=== PATIENT | female | born 1945 | race Caucasian/White ===

== ENCOUNTER 2020-07-30 11:52 | Outpatient (CLI) | payer MEDICARE | END 2020-07-30 23:59 | disposition home or self-care (01) | LOC: CFH 11:52 | PROVIDERS: ATTEND Family Medicine | DX: N60.02 Solitary cyst of left breast (principal); N63.20 Unspecified lump in the left breast, unspecified quadrant | CPT/HCPCS: 76642; 77062; 77066; G0279 ==

== ENCOUNTER → 2020-08-11 | Outpatient (CLI) | payer MEDICARE | END | disposition home or self-care (01) | LOC: CFH 10:31 | PROVIDERS: ATTEND Family Medicine | DX: M85.88 Other specified disorders of bone density and structure, other site (principal) | CPT/HCPCS: 77080 ==

== ENCOUNTER → 2020-09-22 | Outpatient (CLI) | payer MEDICARE ==
[~2020-09-22] MED LIST: ACET-1600 PO; MULT-717 PO; phentermine PO
[2020-09-22 11:48] LABS: BASOPHILS % (AUTO) 1 % (0-1); EOSINOPHILS % (AUTO) 14 % (1-7); LYMPHOCYTES % (AUTO) 29 % (22-44); MEAN CORPUSCULAR HEMOGLOBIN 29.6 pg (27.0-34.8); MEAN CORPUSCULAR HGB CONC 33.5 g/dL (32.4-35.8); MEAN PLATELET VOLUME 7.8 fL (7.4-10.4); MONOCYTES % (AUTO) 6 % (2-9); NEUTROPHILS % (AUTO) 51 % (42-75); PLATELET COUNT 298 x10^3/uL (130-400); RED CELL DISTRIBUTION WIDTH 15.6 % (9.6-15.2)
[2020-09-22 11:54] LABS: CHLORIDE 106 mmol/L (98-107); INTERNATIONAL NORMALIZED RATIO 1.02 (0.93-1.1); PROTHROMBIN TIME 10.9 Seconds (9.6-11.5)
[2020-09-22 11:57] LABS: MD NO
[2020-09-22 12:13] LABS: ALANINE AMINOTRANSFERASE 27 U/L (12-78); ALBUMIN 3.5 g/dL (3.4-5.0); ALKALINE PHOSPHATASE 117 U/L (45-117); ANION GAP 6 mmol/L (5-15); BILIRUBIN,TOTAL 0.3 mg/dL (0.2-1.0); CALCIUM 9.9 mg/dL (8.5-10.1); CREATININE 0.57 mg/dL (0.55-1.02); TOTAL PROTEIN 7.6 g/dL (6.4-8.2)
== END | disposition home or self-care (01) ==
LOC: STAR 10:18
PROVIDERS: ATTEND Orthopaedic Surgery
DX: Z01.810 Encounter for preprocedural cardiovascular examination (principal); Z01.818 Encounter for other preprocedural examination; M16.11 Unilateral primary osteoarthritis, right hip; M25.551 Pain in right hip; Z79.01 Long term (current) use of anticoagulants; Z20.822 Contact with and (suspected) exposure to COVID-19
CPT/HCPCS: 36415; 80053; 83036; 85025; 85610; 85730; 87081; 87806; 93005; U0003; G0475

== ENCOUNTER 2020-09-28 06:01 | Observation (INO) | payer MEDICARE ==
[~2020-09-28] VITALS: Ht 165.1 cm; Wt 109.4 kg
[2020-09-28] MEDS ORDERED: ACETAMINOPHEN 650 MG/20.3 ML UDC PO PRN (07:00)
[2020-09-28] MEDS ORDERED: POLYETHYLENE GLYCOL 17 GM PACKET PO PRN (07:00)
[2020-09-28] MEDS ORDERED: DIPHENHYDRAMINE 50 MG CAPSULE PO PRN (07:00)
[2020-09-28] MEDS ORDERED: TRANEXAMIC ACID 1,000 MG in SODIUM CHLORIDE 0.9% 100 ML IVPB ONE ×2 (07:00→11:00)
[2020-09-28] MEDS ORDERED: PSYLLIUM PACKET PO PRN (07:00)
[2020-09-28] MEDS ORDERED: ALUMINUM/MAG/SIMETHICONE 30 ML UDC PO PRN (07:00)
[2020-09-28] MEDS ORDERED: ONDANSETRON 2MG/ML, 2ML IVPush PRN (07:00)
[2020-09-28] MEDS ORDERED: METOCLOPRAMIDE 5 MG/ML, 2ML IVPush PRN (07:00)
[2020-09-28] MEDS ORDERED: DIPHENHYDRAMINE 50 MG/ML, 1ML IVPush PRN (07:00)
[2020-09-28] MEDS ORDERED: HYDROmorphone 1 MG/ML, 1ML INJ IVPush PRN ×2 (07:00→08:30)
[2020-09-28] MEDS ORDERED: ONDANSETRON 4 MG TABLET PO PRN (07:00)
[2020-09-28] MEDS ORDERED: MAGNESIUM HYDROXIDE 8%, 30ML UDC PO PRN (07:00)
[2020-09-28] MEDS ORDERED: CHLORHEXIDINE 15 ML UDC ONE (07:16)
[2020-09-28] MEDS ORDERED: CHLORHEXIDINE 15 ML UDC PO ONE (07:30)
[2020-09-28] MEDS ORDERED: ACETAMINOPHEN 500 MG TABLET PO ONE (07:30)
[2020-09-28] MEDS ORDERED: LACTATED RINGERS 1,000 ML IV SCH (07:30)
[2020-09-28] MEDS ORDERED: GABAPENTIN 300 MG CAPSULE PO ONE (07:30)
[2020-09-28] MEDS ORDERED: FENTANYL PF 250 MCG/5ML ONE ×2 (08:09→09:07)
[2020-09-28] MEDS ORDERED: KETOROLAC 60 MG/2 ML ONE (08:09)
[2020-09-28] MEDS ORDERED: VANCOMYCIN 1,000 MG ONE (08:10)
[2020-09-28] MEDS ORDERED: EPINEPHRINE 1 MG/ML, 1ML ONE (08:10)
[2020-09-28] MEDS ORDERED: ROPIvacaine/PF 0.2%, 20 ML ONE ×2 (08:10→08:22)
[2020-09-28] MEDS ORDERED: TRANEXAMIC ACID 100 MG/ML, 10ML ONE (08:10)
[2020-09-28] MEDS ORDERED: ACETAMINOPHEN 325 MG TABLET PO PRN (08:30)
[2020-09-28] MEDS ORDERED: OXYcodone 5 MG/5 ML ORAL.SOL UDC PO PRN (08:30)
[2020-09-28] MEDS ORDERED: morphine SULFATE 10 MG/ML, 1ML IVPush PRN (08:30)
[2020-09-28] MEDS ORDERED: hydrALAzine 20 MG/ML, 1ML IV PRN (08:30)
[2020-09-28] MEDS ORDERED: LABETALOL 5MG/ML, 20ML IV PRN (08:30)
[2020-09-28] MEDS ORDERED: PROMETHAZINE 25 MG/ML, 1ML IVPush PRN (08:30)
[2020-09-28] MEDS ORDERED: MEPERIDINE/PF 25MG/0.5ML IVPush PRN (08:30)
[2020-09-28] MEDS ORDERED: HALOPERIDOL 5 MG/ML IV PRN (08:30)
[2020-09-28] MEDS ORDERED: ONDANSETRON 2MG/ML, 2ML ONE (09:07)
[2020-09-28] MEDS ORDERED: DEXAMETHASONE 4 MG/ML, 1ML ONE (09:07)
[2020-09-28] MEDS ORDERED: NEOSTIGMINE 1 MG/ML, 10ML ONE (09:07)
[2020-09-28] MEDS ORDERED: ROCURONIUM 10MG/ML,5ML ONE (09:07)
[2020-09-28] MEDS ORDERED: CEFAZOLIN 1,000 MG ONE (09:07)
[2020-09-28] MEDS ORDERED: PROPOFOL 10 MG/ML, 20ML ONE (09:07)
[2020-09-28] MEDS ORDERED: GLYCOPYRROLATE 0.2MG/1ML, 5ML ONE (09:07)
[2020-09-28] MEDS ORDERED: OXYcodone 5 MG/5 ML ORAL.SOL UDC ONE (10:21)
[2020-09-28] MEDS: FENTANYL PF 100 MCG/2ML IV PRN ×2 (10:21→11:06)
[2020-09-28] MEDS ORDERED: FENTANYL PF 100 MCG/2ML ONE (10:22)
[2020-09-28] MEDS ORDERED: ACETAMINOPHEN 650 MG/20.3 ML UDC ONE (10:22)
[2020-09-28] MEDS ORDERED: METHOCARBAMOL 1000MG/10 ML IV ONE (10:30)
[2020-09-28] MEDS ORDERED: METHOCARBAMOL 1,000 MG in DEXTROSE 5% 100 ML IV ONE (10:30)
[2020-09-28] MEDS ORDERED: MEPERIDINE/PF 25MG/ML,1ML ONE (10:32)
[2020-09-28 12:45] VITALS: BP 143/81
[2020-09-28] MEDS: POTASSIUM CHLORIDE 20 MEQ in D5%-0.45% NACL 1,000 ML IV SCH (14:51)
[2020-09-28] MEDS: TAMSULOSIN 0.4 MG CAP.ER.24H PO SCH (14:52)
[2020-09-28] MEDS: OXYcodone IR 5MG TABLET PO PRN ×2 (14:52→20:11)
[2020-09-28] MEDS: DOCUSATE 100 MG CAPSULE PO SCH ×2 (14:52→20:11)
[2020-09-28] MEDS: KETOROLAC 30 MG/1 ML IV SCH (17:21)
[2020-09-28] MEDS: CEFAZOLIN PMX 1GM/50ML 50 ML IVPB SCH (18:40)
[2020-09-28 18:59] VITALS: BP 128/68
[2020-09-28 23:25] VITALS: BP 116/70
[2020-09-29] MEDS: KETOROLAC 30 MG/1 ML IV SCH ×2 (01:11→09:34)
[2020-09-29] MEDS: POTASSIUM CHLORIDE 20 MEQ in D5%-0.45% NACL 1,000 ML IV SCH (01:11)
[2020-09-29] MEDS: CEFAZOLIN PMX 1GM/50ML 50 ML IVPB SCH (02:03)
[2020-09-29 03:33] VITALS: BP 109/61
[2020-09-29] MEDS: OXYcodone IR 5MG TABLET PO PRN ×2 (05:28→11:13)
[2020-09-29] MEDS ORDERED: RIVAROXABAN 10 MG TABLET PO SCH (06:00)
[2020-09-29 07:33] VITALS: BP 104/65
[2020-09-29] MEDS: TAMSULOSIN 0.4 MG CAP.ER.24H PO SCH (09:00)
[2020-09-29] MEDS: DOCUSATE 100 MG CAPSULE PO SCH (09:34)
[2020-09-29 11:17] VITALS: BP 124/71
== END 2020-09-29 11:50 | disposition home or self-care (01) ==
LOC: OUT 06:01 → ORIP 06:45 → 4NE 12:38 → DCLOUNGE 09-29 11:37
PROVIDERS: ADMIT Orthopaedic Surgery; ATTEND Orthopaedic Surgery
DX: M16.11 Unilateral primary osteoarthritis, right hip (principal); Z79.899 Other long term (current) drug therapy
CPT/HCPCS: 27130; 36415; 72170; 85014; 85018; 86850; 86900; 96361; 96365; 96366; 96375; 96376; 97110; 97161; 97166; C1713; C1776; G0378; J0171; J0690; J1100; J1885; J2175; J2405; J2704; J2710; J2795; J2800; J3010; J3370; J3480; J7120